=== PATIENT | male | born 1960 | race Caucasian/White ===

== ENCOUNTER 2018-08-04 10:27 | Outpatient (RCR) | payer MEDICARE, SELFPAY | END 2018-08-19 23:59 | LOC: LABSPEC 10:27 | PROVIDERS: Family Provider Family Medicine; PCP Family Medicine; Referring Provider Family Medicine; Visit Provider Family Medicine | DX: F20.9 Schizophrenia, unspecified (principal); F31.9 Bipolar disorder, unspecified; Z51.81 Encounter for therapeutic drug level monitoring; Z79.899 Other long term (current) drug therapy | CPT/HCPCS: 82140 ==

== ENCOUNTER 2020-08-28 09:39 | Emergency (ER) | payer MEDICARE, SELFPAY ==
[2020-08-28] VITALS (9 sets, daily range): BP systolic 114–148; BP diastolic 84–92; PULSE 70–83; RESP 15–20; TEMP 36.4; O2SAT 94–100; BMI 23.6
--- NOTE | 2020-08-28 09:53 | RAD_ITS ---
STUDY: X-RAY - LEFT SHOULDER REASON FOR EXAM: Male, 60 years old. FALL, SHOULDER PAIN/DEFORMITY TECHNIQUE: 2 view(s) of the shoulder. COMPARISON: None. FINDINGS: Normal glenohumeral articulation. Normal acromioclavicular joint. Normal acromion. There is an impacted, fracture of the surgical neck of the proximal humerus. There appears to be a 4 cm x 2.2 cm sclerotic lesion in the metaphysis of the proximal left humerus. The soft tissue structures are unremarkable. Normal visualized pulmonary apex. RAD/Shoulder min 2 Views IMPRESSION: Impacted nondisplaced fracture of the surgical neck of the humerus with extension of the greater tuberosity. 4 cm x 2.2 cm sclerotic lesion seen at the level of the proximal humeral metaphysis. Electronically Signed: Price Hampton, at 10:26 EST , Service support ,
--- NOTE | 2020-08-28 10:15 | ED.DCSUM_ITS ---
History of Present Illness Chief Complaint: Fall Informant: Patient Narrative: Patient is a 60-year-old male with a past medical history of mental retardation, psychiatric disorders, diabetes who presents to the emergency department for left shoulder injury. He states that he was jumping on the bed when he fell off. He has a deformity to his left shoulder. He denies any loss of sensation going down his hand. He has good assistant restaurant general manager strength. He currently rates the pain as mild. Movement makes it worse. He denies any other injury. He does have bruising on his face but this was from a previous fall. Denies any headache, vision changes. No chest pain or shortness of breath. No back pain. No injury to other extremities. He has not been able to ambulate since the event. Past Medical History - Allergies and Home Meds Allergies/Adverse Reactions: Allergies bacitracin Allergy (Verified 08/28/20 09:39) Unknown benazepril HCl [From Lotensin] Allergy (Verified 08/28/20 09:39) Unknown hydrochlorothiazide Allergy (Verified 08/28/20 09:39) Unknown lisinopril Allergy (Verified 08/28/20 09:39) Unknown lorazepam [From Ativan] Allergy (Verified 08/28/20 09:39) Unknown polymyxin B sulfate [From Polysporin] Allergy (Verified 08/28/20 09:39) Unknown tramadol Allergy (Verified 08/28/20 09:39) Unknown Primary Care Physician: Jomar Magdaleno MD [STAFF PHYSICIAN] - 2 Days Master Cohen MD [Primary Care Provider] - Prior records reviewed: Yes Smoking Status: Current every day smoker Review of Systems All systems negative except as indicated General: Denies: Chills, Fever, Sweats Eyes: Denies: Visual changes - bilaterally, Diplopia ENT: Denies: Rhinorrhea, Sore throat Cardiovascular: Denies: Chest pain, Palpitations Respiratory: Denies: Dyspnea, Cough, Dyspnea on exertion Gastrointestinal: Denies: Abdominal pain, Nausea, Vomiting, Diarrhea Musculoskeletal: Reports: Extremity Pain. Denies: Back pain Skin: Denies: Rash, Wounds Neurological: Denies: Headache, Weakness, Numbness Physical Exam Vital Signs/Narrative: Vital Signs Temp Pulse Resp BP Pulse Ox 08/28/20 09:40 97.6 F L 71 18 126/84 H 94 Inital Vital Signs reviewed: Yes General: Well nourished, Well developed, No Acute Distress Head: Normocephalic, - - Area of ecchymosis under the left eye which is old. Eyes: Perrl, EOMI ENT: Moist mucous membranes, No rhinorrhea Neck: Supple, Nontender Cardiovascular: Regular rate, Regular rhythm, No murmurs Respiratory: No distress, CTA bilaterally, Chest nontender Abdomen: Soft, Nontender, Nondistended, Normal bowel sounds Back: Nontender, Normal Inspection Extremities: Nontender, No edema, - - Deformity to left shoulder with skin divot on the lateral shoulder. Unable to raise the arm. Good assistant restaurant general manager strength. 2+ radial pulse. Sensation intact. Skin: Normal color, No rash Neurological: Alert, Cranial nerves II-XII grossly intact, Normal Strength, Normal Sensation Psychological: Normal affect, Normal Mood Diagnostic/Tx/Re-eval - Medical Decision Making Patient presents to the emergency department for injury to left shoulder after jumping on the bed. There is an obvious deformity. X-ray being obtained. X-ray showed a proximal humerus fracture. With the skin tenting there was concerned that the tissue is being pinched by the fracture. I did call the on- call orthopedic doctor, . He did recommend we obtain axial views to make sure that there was a dislocation which there was not. Since the patient has the skin divot he recommended reduction of the fracture. Patient was consented for this. Did speak with the caregiver who states patient can make his own decisions and is able to give consent. Using propofol patient was sedated. We did reduce this which resolved the skin/soft tissue issue. He is placed in a sling and will follow up with orthopedic surgery. Patient given [place] for pain management at home. Warning signs and symptoms for which to return to the ED are reviewed. He understands and is agreeable this plan. Procedures Procedure(s): Procedural sedation and fracture reduction: Patient consented prior to start of procedure. All risks and benefits associated with the procedure were discussed. Timeout was taken prior to start of procedure. Patient started on IV fluids, nasal cannula. Suction and BVM at bedside. Using 40 mg of propofol patient was well sedated for reduction. Using traction/countertraction the humerus was attempted to be reset. The skin divot did resolve with pulling on the arm. Patient tolerated the procedure well without any apparent complications. The whole procedure lasted 7 minutes. Patient monitored and never had any decrease in blood pressure or and never became hypoxic. He was observed post procedure for 1 hour afterward and has been doing well. ED Disposition - Plan for ED Patient: Disposition: Home or Assisted Living Diagnosis: Humerus fracture Instructions: ED Procedural Sedation, (Adult), ED Fracture Upper Extremity Prescriptions: Hydrocodone/Acetaminophen [[place] 5-325 Tablet] 1 ea PO Q8H 3 Days #10 tab Prescription Printed Referrals: Master Cohen MD [Primary Care Provider] - Jomar Magdaleno MD [STAFF PHYSICIAN] - 2 Days
--- NOTE | 2020-08-28 10:50 | RAD_ITS ---
STUDY: X-RAY - LEFT SHOULDER REASON FOR EXAM: Male, 60 years old. Axillary view per request of ortho doc TECHNIQUE: Single view(s) of the shoulder. COMPARISON: None. FINDINGS: Normal glenohumeral articulation. Normal acromioclavicular joint. Normal acromion. Comminuted fracture through the surgical neck of the humerus with slight posterior displacement of the distal fracture fragment. A lucent lesion is seen at the fracture site. A pathological fracture should be ruled out. The soft tissue structures are unremarkable. Normal visualized pulmonary apex. RAD/Shoulder One View IMPRESSION: Comminuted fracture through the surgical neck of the humerus with some mild dorsal displacement of the distal fracture fragment. A pathological fracture should be ruled out. Electronically Signed: Price Hampton, at 11:04 EST , Service support ,
[2020-08-28] MEDS: HYDROcodone Bitartrate/Apap 5/325 Tablet PO (11:03)
[2020-08-28] MEDS: Propofol 200 MG/20 ML Vial 80 MG IV BOLUS (12:57)
--- NOTE | 2020-08-28 12:59 | RAD_ITS ---
STUDY: X-RAY - LEFT SHOULDER REASON FOR EXAM: Male, 60 years old. POST REDUCTION LEFT SHOULDER TECHNIQUE: 2 view(s) of the shoulder. COMPARISON: Comparison is made with prior study done earlier today. FINDINGS: Satisfactory reduction of the glenohumeral joint. RAD/Shoulder min 2 Views IMPRESSION: Satisfactory reduction of the glenohumeral joint. Electronically Signed: Price Hampton, at 13:16 EST , Service support ,
--- NOTE | 2020-08-28 14:42 | ED.RN ---
this rn called report back to [facility], and spoke to joe his nurse. pt to follow up with ortho in 2 days.
== END 2020-08-28 14:47 | disposition home or self-care (01) ==
PROVIDERS: Emergency Provider Emergency Medicine; PCP Family Medicine
DX: S42.302A Unspecified fracture of shaft of humerus, left arm, initial encounter for closed fracture (principal); W19.XXXA Unspecified fall, initial encounter; Z79.82 Long term (current) use of aspirin; F17.200 Nicotine dependence, unspecified, uncomplicated
CPT/HCPCS: 73020; 73030; 96374; 99285; J7030; A4216

== ENCOUNTER → 2020-09-06 14:55 | Outpatient (CLI) | payer MEDICARE, MEDICAID, SELFPAY ==
[2020-08-28 09:40] VITALS: BMI 23.6
--- NOTE | 2020-09-06 15:04 | CT_ITS ---
STUDY: CT LEFT SHOULDER REASON FOR EXAM: Male, 60 years old. 3 PART FX OF LEFT HUMERUS AFTER FALL RADIATION DOSAGE (If Supplied By Facility): CTDIvol = ( 24.90 ) mGy, DLP = ( 480.57 ) mGycm TECHNIQUE: The patient was scanned in a multi detector CT scanner. High resolution transaxial imaging was performed without the administration of intravenous contrast material. Sagittal and coronal images were reconstructed. Individualized dose optimization techniques were used for this CT. COMPARISON: Comparison is made with prior radiograph dated 08/28/2020. FINDINGS: Normal glenohumeral articulation. Normal glenoid rim, neck and visualized scapula. There is evidence of a oblique fracture through the surgical neck of the humerus. This extends into the greater tuberosity of the humerus posteriorly. I suspect a 3 cm x 3 cm soft tissue density at the fracture site. A pathological fracture should be ruled out. Normal coracoid process. Normal visualized lateral clavicle. Normal acromioclavicular articulation. There is a Type II morphology (curved), with a neutral orientation. CT/Extremity Upper without Contra IMPRESSION: Oblique fracture through the surgical neck of the humerus with extension to the greater tuberosity. Questionable 3 cm x 3 cm soft tissue mass within the fracture site suggestive of a pathological fracture. Electronically Signed: Price Hampton, at 15:27 EST , Service support ,
== END ==
PROVIDERS: PCP Family Medicine; Referring Provider Physician Assistant; Visit Provider Physician Assistant
DX: S42.232A 3-part fracture of surgical neck of left humerus, initial encounter for closed fracture (principal)
CPT/HCPCS: 73200

== ENCOUNTER 2020-11-24 15:14 | Emergency (ER) | payer MEDICARE, MEDICAID, SELFPAY ==
[2020-08-28 09:40] VITALS: BMI 23.6
[2020-11-24 15:15] VITALS: BP 124/83; PULSE 117; RESP 12; TEMP 37.6; O2SAT 99; BMI 20.7
--- NOTE | 2020-11-24 15:44 | ED.VIS.GEN ---
History of Present Illness Chief Complaint: Wound Check Informant: Patient, - - aide Onset: Weeks - 2 Context: Gradual Onset Timing: Continuous Quality: sore Location: left shoulder postop wound Current Severity: Moderate Maximum Severity: Moderate Worsened by: palpation Relieved by: leaving alone Associated Symptoms: n/v since yest, possibly small blood clot Narrative: Patient is in a correction, for psychiatric reasons. He had fallen and broke his left proximal humerus which had ORIF on 10/27/2020. A couple weeks ago the wound dehisced after sutures were removed, and he has gradually developed an outgrowth of tissue there, it has progressively become worse and more prominent. The aide states that they have been using silver nitrate on it at the correction but it still is getting bigger and orthopedics asked that they be evaluated at the local ER. Patient has had no fevers or chills, but yesterday he started vomiting off and on, and last night staff saw what looked like a clot/chunk of blood. Unknown if the patient has had bloody stools or melena. He denies any abdominal pain. He states he just has pain in his left shoulder, the aide states that has been the case since his surgery. Takes aspirin, no anticoagulants. - Past Medical History (1) Bipolar disorder Status: Chronic (2) Chronic paranoid schizophrenia Status: Chronic (3) Mental retardation Status: Chronic (4) Seizure disorder Status: Chronic (5) Type 2 diabetes mellitus Status: Chronic (6) Iron deficiency anemia Status: Chronic (7) Intermittent explosive disorder Status: Chronic (8) Asthma Status: Chronic Past Medical History - Allergies and Home Meds Allergies/Adverse Reactions: Allergies bacitracin Allergy (Verified 08/28/20 09:39) Unknown benazepril HCl [From Lotensin] Allergy (Verified 08/28/20 09:39) Unknown cantaloupe Allergy (Verified 11/24/20 15:20) PT UNSURE OF REACTION hydrochlorothiazide Allergy (Verified 08/28/20 09:39) Unknown lisinopril Allergy (Verified 08/28/20 09:39) Unknown lorazepam [From Ativan] Allergy (Verified 08/28/20 09:39) Unknown polymyxin B sulfate [From Polysporin] Allergy (Verified 08/28/20 09:39) Unknown tramadol Allergy (Verified 08/28/20 09:39) Unknown Primary Care Physician: Master Cohen MD [Primary Care Provider] - Smoking Status: Light Smoker (<10/day) Review of Systems General: Denies: Chills, Fever, Sweats Eyes: Denies: Visual changes - bilaterally, Diplopia ENT: Denies: Bilateral ear pain, Sore throat Cardiovascular: Denies: Chest pain, Palpitations Respiratory: Denies: Dyspnea, Cough Gastrointestinal: Reports: Nausea, Vomiting. Denies: Abdominal pain, Diarrhea, Hematochezia Genitourinary: Denies: Dysuria, Hematuria Musculoskeletal: Reports: Extremity Pain - left shoulder. Denies: Neck pain, Back pain Skin: Reports: Wounds. Denies: Rash Neurological: Denies: Headache, Weakness, Numbness Physical Exam Vital Signs/Narrative: Vital Signs Temp Pulse Resp BP Pulse Ox 11/24/20 15:15 99.6 F H 117 H 12 124/83 H 99 Inital Vital Signs reviewed: Yes General: Well nourished, Well developed, No Acute Distress Head: Normocephalic, Atraumatic Eyes: Perrl, EOMI ENT: Moist mucous membranes, No rhinorrhea Neck: Supple, Nontender Cardiovascular: Regular rate, Regular rhythm, No murmurs, Tachycardia Respiratory: No distress, CTA bilaterally, Chest nontender Abdomen: Soft, Nontender, Nondistended, Normal bowel sounds Back: Nontender, Normal Inspection Extremities: No edema, Tenderness - At dehisced left anterior shoulder surgical incision with outgrowth of subcutaneous tissue consistent with pyogenic granuloma. No tenderness surrounding the area no surrounding erythema or petechia/purpura., - - Limited range of motion of left shoulder, but patient is able to move it in a short arc range of motion without any difficulty. This has been the patient's baseline range of motion since his operation according to the aide. Skin: Normal color, No rash Neurological: Alert, Oriented x3 - At patient's mental baseline, Cranial nerves II-XII grossly intact, Normal Strength, Normal Sensation Psychological: Normal affect, Normal Mood Diagnostic/Tx/Re-eval Laboratory Tests 11/24/20 11/24/20 Range/Units 16:15 16:15 WBC 8.4 (4.4-11.0) K/mm3 RBC 2.91 L (4.6-6.2) M/mm3 Hgb 8.3 L (13.0-16.5) g/dL Hct 25.9 L (40-54) % MCV 89.0 (80-94) fL MCH 28.5 (27.0-32.0) pg MCHC 32.0 (32-36) g/dL RDW Std Deviation 45.1 H (35.1-43.9) fl RDW Coeff of Dana 13.6 (11.6-14.6) % Plt Count 483 H (150-450) K/mm3 MPV 8.6 (6.2-12.0) fl Immature Gran % (Auto) 0.500 (0.0-0.9) % Neut % (Auto) 74.5 H (47-70) % Lymph % (Auto) 19.9 (19-41) % Marion % (Auto) 5.0 (0-10) % Eos % (Auto) 0.0 (0-5) % Baso % (Auto) 0.1 (0-1) % Absolute Neuts (auto) 6.2 (2.0-7.7) X10^3/uL Absolute Lymphs (auto) 1.66 (0.83-4.51) X10^3/uL Nucleated RBC % 0 (0-5) % Sodium 130 L (136-145) mmol/L Potassium 4.2 (3.5-5.1) mmol/L Chloride 96 L (98-107) mmol/L Carbon Dioxide 30.0 (21.0-32.0) mmol/L Anion Gap 4 L (5-15) BUN 18 (7-18) mg/dL Creatinine 0.89 (0.70-1.30) mg/dL Estim Creat Clear Calc 73.16 ml/min Est GFR (MDRD) Af Amer 111 (>60) mL/min Est GFR (MDRD) Non-Af 92 (>60) mL/min BUN/Creatinine Ratio 20.2 H (10-20) RATIO Glucose 93 (74-106) mg/dL Calcium 9.6 (8.5-10.1) mg/dL Total Bilirubin 0.30 (0.20-1.00) mg/dL AST 21 (15-37) U/L ALT 25 (16-61) U/L Alkaline Phosphatase 36 L (45-117) U/L Total Protein 7.9 (6.4-8.2) g/dL Albumin 2.3 L (3.2-5.0) g/dL Globulin 5.6 H (2.2-4.2) g/dL Albumin/Globulin Ratio 0.4 L (0.9-2.4) RATIO Lipase 84 (73-393) U/L - Medical Decision Making Patient was given IV Protonix and Zofran along with IV fluids given his symptoms of possible upper GI bleeding/hematemesis. Despite getting Zofran, he did have a couple episodes of dry heaving but did not vomit. He is anemic at 8.3 hemoglobin, however his last 1 was 7 or 8 years ago that we have record of so it is unknown if this is acute due to blood loss or not but since his BUN is not elevated, I suspect he does not have hemodynamically significant acute upper GI bleeding. He does have iron deficiency anemia on his sheet of diagnoses. I [facility]'s orthopedic surgeon, he states they have been following along with the staff at the correction / assisted living concerning this granuloma which is consistent in my opinion with a pyogenic granuloma, via pictures they were sending and since it is getting so big he prefers to take care of it in the operating room and request that the patient be transferred to [facility] so that they can take care of it from there. I did do a rectal, there is light brown nonbloody nonmelanotic stool present, I sent it for Hemoccult and it is pending at this time. ED Disposition - Plan for ED Patient: Disposition: [facility] Diagnosis: Pyogenic granuloma of skin, Vomiting, Anemia Referrals: Master Cohen MD [Primary Care Provider] -
[2020-11-24] MEDS: Ondansetron 4 MG/2 ML Vial IV (16:12)
[2020-11-24 16:16] VITALS: BP 125/82; PULSE 116; RESP 18; O2SAT 100
[2020-11-24 16:21] VITALS: BP 125/82; PULSE 116; RESP 18; TEMP 37.6; O2SAT 100
[2020-11-24 16:39] LABS: Absolute Lymphocyte Count 1.66 X10^3/uL (0.83-4.51); Absolute Neutrophil Count 6.2 X10^3/uL (2.0-7.7); Basophil# 0.01 X10^3/uL; Basophil% 0.1 % (0-1); Hematocrit 25.9 % (40-54); Hemoglobin 8.3 g/dL (13.0-16.5); Lymphocyte # 1.66 X10^3/ul (4.0); Lymphocyte % 19.9 % (19-41); Mean Corpuscular Hgb 28.5 pg (27.0-32.0); Mean Platelet Vol. 8.6 fl (6.2-12.0); Monocyte# 0.42 X10^3/uL; NRBC Flagged by Analyzer 0 % (0-5); Neutrophil # 6.23 X10^3/uL (2.7-7.7); Neutrophil % 74.5 % (47-70); Platelet Count 483 K/mm3 (150-450); RBC Distribution Width CV 13.6 % (11.6-14.6); RBC Distribution Width SD 45.1 fl (35.1-43.9); Red Blood Count 2.91 M/mm3 (4.6-6.2); White Blood Count 8.4 K/mm3 (4.4-11.0)
[2020-11-24 16:43] LABS: POSITIVE COUNT NO; POSITIVE DIFFERENTIAL NO; POSITIVE MORPHOLOGY NO
[2020-11-24 16:47] LABS: ALB/GLOB Ratio 0.4 RATIO (0.9-2.4); AST(SGOT) 21 U/L (15-37); Alanine Aminotransfer ALT/SGPT 25 U/L (16-61); Albumin, Serum 2.3 g/dL (3.2-5.0); Alkaline Phosphatase 36 U/L (45-117); Anion Gap 4 (5-15); BUN 18 mg/dL (7-18); BUN/Creat Ratio 20.2 RATIO (10-20); Calcium,Total 9.6 mg/dL (8.5-10.1); Chloride 96 mmol/L (98-107); Creatinine, Serum 0.89 mg/dL (0.70-1.30); EST Glomerular Filtration Rate 92 mL/min (>60); Est Glom Filt Rate - Afr Amer 111 mL/min (>60); Estimated Creatinine Clearance 73.16 ml/min; Globulin 5.6 g/dL (2.2-4.2); Glucose 93 mg/dL (74-106); Lipase 84 U/L (73-393); Potassium 4.2 mmol/L (3.5-5.1); Protein, Total 7.9 g/dL (6.4-8.2); Sodium Level 130 mmol/L (136-145)
--- NOTE | 2020-11-24 17:10 | ED.RN ---
[facility] CONTACTED TO TRANSPORT. ETA 1.5-2 HOURS. TIS NURSE ASKED THEM TO PLEASE TRY TO FIND A TRANSPORT SOONER
[2020-11-24] MEDS: Metoclopramide 10 MG/2 ML Vial 5 MG IV (17:14)
[2020-11-24 17:22] VITALS: BP 110/74; PULSE 116; RESP 18
--- NOTE | 2020-11-24 17:46 | ED.RN ---
PER MARY KAY HERNÁNDEZ TO SEND VIA [employer] [facility] PHYSICIANS CONTACTED. ETA 30-45 MIN
== END 2020-11-24 18:44 | disposition short-term general hospital (02) ==
LOC: ED 16:22
PROVIDERS: Emergency Provider Emergency Medicine; PCP Family Medicine
DX: L98.0 Pyogenic granuloma (principal); R11.10 Vomiting, unspecified; D64.9 Anemia, unspecified; F31.9 Bipolar disorder, unspecified; G40.909 Epilepsy, unspecified, not intractable, without status epilepticus; F20.0 Paranoid schizophrenia; Z79.82 Long term (current) use of aspirin
CPT/HCPCS: 80053; 82274; 83690; 85025; 96365; 96375; 99285; J7030; A4216; J2405; J3490